=== PATIENT | male | born 1985 | race Caucasian/White ===

== ENCOUNTER 2016-11-27 12:05 | Emergency (ER) | payer MEDICAID ==
[2016-11-27 12:17] VITALS: BP 163/99
[2016-11-27] MEDS ORDERED: HYDROcod/ACETAM 5/325 MG TABLET PO STA (12:31)
[2016-11-27] MEDS ORDERED: DEXAMETHASONE 10 MG/ML VIAL PO STA (12:31)
[2016-11-27] MEDS ORDERED: NAPROXEN 250 MG TABLET PO STA (12:31)
[2016-11-27] MEDS ORDERED: NAPROXEN 250 MG TABLET PO ONE (12:35)
[2016-11-27] MEDS ORDERED: DEXAMETHASONE 10 MG/ML VIAL ONE (12:35)
[2016-11-27] MEDS ORDERED: HYDROcod/ACETAM 5/325 MG TABLET ONE (12:35)
--- NOTE | 2016-11-27 12:35 | ED Physician Documentation ---
PD HPI LOWER EXT INJURY - Stated complaint Stated Complaint: FOOT PX/SWELLING - Chief complaint Chief Complaint: Ext Problem - History obtained from History obtained from: Patient - History of Present Illness PD HPI LOW EXT INJURY LOCATION: Left, Toe (base of great toe.) Type of injury: Other (has had new boots for 3 weeks with some rub spot on end of toe but was not feeling pressure at the MTP. Has had more "summer food" lately with hot dogs/ hamburgers and more beer. No history of similar.). No: Fall, Twist Timing - onset: How many days ago (2) Timing - duration: Days (2 day of increasing pain. Had gotten new boots 3 weeks ago and though he might have wear spot from the boot breaking in, but the other foot feels okay and the foot is not hurting where the boot feels tight, but lower to it.) Timing - details: Gradual onset, Still present Improved by: No: Rest Worsened by: Moving, Palpating Associated symptoms: Swelling. No: Weakness, Numbness, Discolored Similar symptoms before: Has not had sx before (no history of gout nor arthritis ) Recently seen: Not recently seen Review of Systems Constitutional: denies: Fever, Chills Skin: denies: Abrasion (s), Laceration (s) Musculoskeletal: denies: Neck pain, Back pain Neurologic: denies: Focal weakness, Numbness PD PAST MEDICAL HISTORY - Past Medical History Past Medical History: Yes Cardiovascular: None Respiratory: None Neuro: None Endocrine/Autoimmune: None GI: GERD : None - Past Surgical History Past Surgical History: No - Present Medications Home Medications: Ambulatory Orders Medication Instructions Recorded Confirmed Colchicine 0.6 mg PO TID #9 tablet 11/27/16 Hydrocodone/Acetaminophen [[place] 1 each PO Q6H PRN #20 tablet 11/27/16 5-325 Tablet] Naproxen [Naprosyn] 500 mg PO BID PRN #20 tablet 11/27/16 - Allergies Allergies/Adverse Reactions: Allergies Allergy/AdvReac Type Severity Reaction Status Date / Time No Known Drug Allergies Allergy Verified 11/27/16 12:17 - Social History Does the pt smoke?: Yes Smoking Status: Current every day smoker Does the pt drink ETOH?: Yes Does the pt have substance abuse?: Yes - Immunizations Immunizations are current?: Yes - POLST Patient has POLST: No PD ED PE NORMAL - Vitals Vital signs reviewed: Yes - General General: Alert and oriented X 3, No acute distress, Well developed/nourished - Derm Derm: Normal color, Warm and dry - Extremities Extremities: Other (left great toe MTP dorsal and medial with marked tenderness , mild swelling, mild redness, without effusion. Some callous on medial side of toes itself but does not hurt there. No abrasions/skin sores. ) - Neuro Neuro: Alert and oriented X 3, No motor deficit, No sensory deficit, Normal speech Results - Vitals Vitals: Vital Signs - 24 hr 11/27/16 12:15 Temperature 36.3 C L Heart Rate 73 Respiratory 14 Rate Blood Pressure 163/99 H O2 Saturation 98 Oxygen O2 Source Room air PD MEDICAL DECISION MAKING - ED course Complexity details: considered differential (could be some reactive arthritis from new boot, but also has had more beer and hotdogs lately and seems gout- like. ), d/w patient Departure - Departure Disposition: 01 Home, Self Care Clinical Impression: Great toe pain Qualifiers: Laterality: left Qualified Code(s): M79.675 - Pain in left toe(s) Condition: Stable Record reviewed to determine appropriate education?: Yes Instructions: ED Arthritis Gout Follow-Up: Naomi Rich ARNP [Primary Care Provider] - Prescriptions: Colchicine 0.6 mg PO TID #9 tablet Naproxen [Naprosyn] 500 mg PO BID PRN #20 tablet PRN Reason: Pain Hydrocodone/Acetaminophen [[place] 5-325 Tablet] 1 each PO Q6H PRN #20 tablet PRN Reason: Pain Comments: This sounds likely gout or could be reactive arthritis (irritated from boots/etc ). Treatment for a single episode would be similar with addition of a gout medication for that possibility. Naproxen twice daily for a week. Colchicine three times daily for 2-3 days until improved. Add Tylenol or hydrocodone as needed for pains. Recheck if not improved over then next 2-3 days. Knowing the particular diagnosis would be more important if not improving or if you get recurrent episodes. Discharge Date/Time: 11/27/16 12:42
[2016-11-27] MEDS ORDERED: CHERRY SYRUP 10 ML UDC PO ONE (12:36)
== END 2016-11-27 12:42 | disposition home or self-care (01) ==
LOC: ED 12:05
DX: M79.675 Pain in left toe(s) (principal); F17.200 Nicotine dependence, unspecified, uncomplicated
CPT/HCPCS: 99283; A9270

== ENCOUNTER 2017-01-02 14:36 | Outpatient (CLI) | payer MEDICAID ==
[2017-01-02 18:48] LABS: BASOPHILS # (AUTO) 0.1 10^3/uL (0.0-0.1); BASOPHILS % (AUTO) 0.5 %; EOSINOPHILS # (AUTO) 0.1 10^3/uL (0.0-0.7); EOSINOPHILS % (AUTO) 1.1 %; HCT - HEMATOCRIT 42.9 % (42.0-52.0); HGB - HEMOGLOBIN 14.9 g/dL (14.0-18.0); LYMPHOCYTES # (AUTO) 3.2 10^3/uL (1.5-3.5); LYMPHOCYTES % (AUTO) 30.9 %; MEAN CORPUSCULAR HEMOGLOBIN 33.8 pg (27.0-31.0); MEAN CORPUSCULAR HGB CONC 34.7 g/dL (32.0-36.0); MEAN CORPUSCULAR VOLUME 97.3 fL (80.0-94.0); MEAN PLATELET VOLUME 7.7 fL (7.4-11.4); MONOCYTES % (AUTO) 9.5 %; NEUTROPHILS # (AUTO) 6.1 10^3/uL (1.5-6.6); NUCLEATED RED BLOOD CELLS AUTO 0.1 /100WBC; RED BLOOD COUNT 4.41 10^6/uL (4.70-6.10); RED CELL DISTRIBUTION WIDTH 14.1 % (12.0-15.0); UNCORRECTED WHITE BLOOD COUNT 10.5 x10^3/uL; WHITE BLOOD COUNT 10.5 x10^3/uL (4.8-10.8)
[2017-01-02 18:57] LABS: ALBUMIN/GLOBULIN RATIO 1.4 (1.0-2.2); BILIRUBIN,TOTAL 0.4 mg/dL (0.2-1.0); CALCIUM 9.5 mg/dL (8.5-10.3); POTASSIUM 4.1 mmol/L (3.5-5.0); TOTAL PROTEIN 6.9 g/dL (6.7-8.2); URIC ACID 8.1 mg/dL (2.6-7.2)
== END 2017-01-02 14:37 | disposition home or self-care (01) ==
LOC: LAB.S 14:36
PROVIDERS: ATTEND Nurse Practitioner Family
DX: M10.9 Gout, unspecified (principal)
CPT/HCPCS: 36415; 80053; 84550; 85025

== ENCOUNTER 2017-03-10 13:39 | Emergency (ER) | payer MEDICAID ==
--- NOTE | 2017-03-10 13:55 | ED Physician Documentation ---
PD HPI CHEST PAIN - Stated complaint Stated Complaint: CHEST PX - Chief complaint Chief Complaint: General - History obtained from History obtained from: Patient - History of Present Illness Timing - onset: Today Timing - onset during: Light activity Timing - duration: Hours Timing - details: Abrupt onset, Still present Quality: Pressure, Aching, Pain Location: Substernal, Other (epigastric/ right upper abd) Radiation: No: Back, Left upper extremity, Right upper extremity Improved by: No: Rest Worsened by: Inspiration, Movement, Palpation. No: Position Associated symptoms: Nausea, General Weakness. No: Shortness of air, Vomiting, Feeling faint / dizzy, Palpitations, Cough Similar symptoms before: Has not had sx before Recently seen: Not recently seen Review of Systems Constitutional: reports: Myalgias (for 2 days), Fatigue. denies: Fever, Chills Nose: reports: Congestion. denies: Rhinorrhea / runny nose Throat: denies: Sore throat Cardiac: denies: Pedal edema, Calf pain Respiratory: reports: Cough (mild in mornings) GI: reports: Nausea (just [employer]). denies: Vomiting, Diarrhea : denies: Dysuria, Frequency Musculoskeletal: denies: Extremity swelling Neurologic: reports: Generalized weakness (onset today). denies: Focal weakness , Numbness, Near syncope, Altered mental status, Headache Endocrine: denies: Weight loss, Easy bruising / bleeding Immunocompromised: denies: Immunocompromised PD PAST MEDICAL HISTORY - Past Medical History Cardiovascular: None Respiratory: Asthma Neuro: None Endocrine/Autoimmune: None GI: GERD : None - Past Surgical History Past Surgical History: No - Present Medications Home Medications: Ambulatory Orders Medication Instructions Recorded Confirmed No Known Home Medications [No 03/10/17 03/10/17 Known Home Medications] - Allergies Allergies/Adverse Reactions: Allergies Allergy/AdvReac Type Severity Reaction Status Date / Time No Known Drug Allergies Allergy Verified 11/27/16 12:17 - Social History Does the pt smoke?: Yes Smoking Status: Current every day smoker Does the pt drink ETOH?: Yes ETOH Use: Beer Does the pt have substance abuse?: Yes Substance Use and Type: Marijuana - Immunizations Immunizations are current?: Yes - POLST Patient has POLST: No PD ED PE NORMAL - Vitals Vital signs reviewed: Yes - General General: Alert and oriented X 3, Well developed/nourished - HEENT HEENT: Atraumatic, Dentition benign - Neck Neck: Supple, no meningeal sign, No adenopathy - Cardiac Cardiac: RRR, No murmur - Male Male : Deferred - Rectal Rectal: Deferred - Back Back: No CVA TTP - Derm Derm: Normal color, Warm and dry - Extremities Extremities: No tenderness to palpate, Normal ROM s pain Results - Vitals Vitals: Oxygen O2 Source Room air - Labs Labs: Laboratory Tests 03/10/17 03/10/17 03/10/17 14:15 14:15 14:15 WBC 7.6 RBC 4.58 L Hgb 15.0 Hct 43.3 MCV 94.7 H MCH 32.7 H MCHC 34.5 RDW 14.0 Plt Count 294 MPV 6.2 L Neut # 3.7 Lymph # 3.2 [place] # 0.6 Eos # 0.1 Baso # 0.1 Absolute Nucleated RBC 0.01 Nucleated RBC % 0.1 Sodium 136 Potassium 4.0 Chloride 101 Carbon Dioxide 21 Anion Gap 14.0 H BUN 8 Creatinine 0.8 Estimated GFR (MDRD) 114 Glucose 115 H Calcium 9.3 Total Bilirubin 0.8 AST 48 H ALT 43 Alkaline Phosphatase 84 Troponin I < 0.04 Total Protein 7.3 Albumin 4.3 Globulin 3.0 Albumin/Globulin Ratio 1.4 Lipase 30 Departure - Departure Disposition: 01 Home, Self Care Clinical Impression: Acute epigastric pain Condition: Stable Record reviewed to determine appropriate education?: Yes Instructions: ED Abdominal Pain Unkn Cause Follow-Up: Naomi Rich ARNP [Primary Care Provider] - Comments: There is no sign of heart process going on and your labs and ultrasound are normal so no gallbladder or pancreas problems. Consider likely irritated stomach. I would suggest some acid reducing medicines such as Pepcid or Zantac once or twice daily for the next week. Antacid such as Maalox or Mylanta. Recheck if not better over the next day or 2 and recheck if symptoms worsening problems. Discharge Date/Time: 03/10/17 17:58
[2017-03-10] MEDS ORDERED: ONDANSETRON 4 MG/2 ML VIAL IVP STA (14:12)
[2017-03-10] MEDS ORDERED: LIDOCAINE VISCOUS 2% 15 ML UDC MM STA (14:12)
[2017-03-10] MEDS ORDERED: MAG HYDROX/AL HYDROX/SIMETH 30 ML UDC PO STA (14:12)
[2017-03-10 14:20] LABS: BASOPHILS # (AUTO) 0.1 10^3/uL (0.0-0.1); BASOPHILS % (AUTO) 0.8 %; EOSINOPHILS # (AUTO) 0.1 10^3/uL (0.0-0.7); EOSINOPHILS % (AUTO) 1.1 %; HCT - HEMATOCRIT 43.3 % (42.0-52.0); LYMPHOCYTES # (AUTO) 3.2 10^3/uL (1.5-3.5); LYMPHOCYTES % (AUTO) 42.4 %; MEAN CORPUSCULAR HEMOGLOBIN 32.7 pg (27.0-31.0); MEAN CORPUSCULAR HGB CONC 34.5 g/dL (32.0-36.0); MEAN CORPUSCULAR VOLUME 94.7 fL (80.0-94.0); MEAN PLATELET VOLUME 6.2 fL (7.4-11.4); MONOCYTES # (AUTO) 0.6 10^3/uL (0.0-1.0); MONOCYTES % (AUTO) 7.5 %; NEUTROPHILS # (AUTO) 3.7 10^3/uL (1.5-6.6); NEUTROPHILS % (AUTO) 48.2 %; NUCLEATED RED BLOOD CELLS AUTO 0.1 /100WBC; RED BLOOD COUNT 4.58 10^6/uL (4.70-6.10); UNCORRECTED WHITE BLOOD COUNT 7.6 x10^3/uL; WHITE BLOOD COUNT 7.6 x10^3/uL (4.8-10.8)
[2017-03-10] MEDS ORDERED: LIDOCAINE VISCOUS 2% 15 ML UDC MM ONE (14:22)
[2017-03-10] MEDS ORDERED: MAG HYDROX/AL HYDROX/SIMETH 30 ML UDC ONE (14:23)
[2017-03-10] MEDS ORDERED: ONDANSETRON 4 MG/2 ML VIAL ONE (14:27)
[2017-03-10] MEDS ORDERED: SODIUM CHLORIDE FLUSH 0.9% 10 ML SYRINGE IVP ONE (14:28)
[2017-03-10 14:33] LABS: ALBUMIN/GLOBULIN RATIO 1.4 (1.0-2.2); BILIRUBIN,TOTAL 0.8 mg/dL (0.2-1.0); CALCIUM 9.3 mg/dL (8.5-10.3); CREATININE 0.8 mg/dL (0.6-1.2); TOTAL PROTEIN 7.3 g/dL (6.7-8.2)
[2017-03-10] MEDS ORDERED: FAMOTIDINE 20 MG TABLET PO STA (14:38)
[2017-03-10] MEDS ORDERED: FAMOTIDINE 20 MG TABLET ONE (14:45)
--- NOTE | 2017-03-10 16:55 | Ultrasound Preliminary Report ---
Exam: US Abdomen Limited IMPRESSION: 1. No gallstones or findings of acute cholecystitis or biliary dilatation. 2. Hepatomegaly with steatosis of the liver [facility] SITE ID: [id number]
--- NOTE | 2017-03-10 16:58 | Ultrasound Report ---
EXAM: ABDOMEN ULTRASOUND LIMITED, RUQ EXAM DATE: 03/10/2017 04:32 PM. CLINICAL HISTORY: Upper abd/RUQ pain onset this morning. COMPARISON: Abdomen CT 08/15/2016. TECHNIQUE: Real-time scanning was performed with static images obtained. FINDINGS: Liver: Liver parenchyma is diffusely echogenic and coarse. The liver is enlarged. 24.4 cm. Main surekha l vein flow: Hepatopetal. Gallbladder: Normal. No stones, wall thickening, or sonographic Aguila's sign. Biliary System: CBD measures 3.5 mm. No intrahepatic or extrahepatic ductal dilatation. Other: Right kidney measures 12.5 cm in length without hydronephrosis. IMPRESSION: 1. No gallstones or findings of acute cholecystitis or biliary dilatation. 2. Hepatomegaly with steatosis of the liver [facility] Referring Provider Line: [phone] SITE ID: [id number]
[2017-03-10] MEDS ORDERED: ACETAMINOPHEN 325 MG TABLET PO STA (17:40)
[2017-03-10] MEDS ORDERED: ACETAMINOPHEN 325 MG TABLET PO ONE (17:55)
[2017-03-10 17:56] VITALS: BP 157/88
== END 2017-03-10 17:58 | disposition home or self-care (01) ==
LOC: ED 13:39
DX: R10.13 Epigastric pain (principal); R94.31 Abnormal electrocardiogram [ECG] [EKG]; F17.200 Nicotine dependence, unspecified, uncomplicated
CPT/HCPCS: 36415; 76705; 80053; 83690; 84484; 85025; 93005; 96374; 99284; A9270

== ENCOUNTER 2017-08-07 10:25 | Outpatient (CLI) | payer MEDICAID ==
[2017-08-07 17:42] LABS: BASOPHILS # (AUTO) 0.1 10^3/uL (0.0-0.1); BASOPHILS % (AUTO) 0.8 %; EOSINOPHILS # (AUTO) 0.1 10^3/uL (0.0-0.7); EOSINOPHILS % (AUTO) 1.3 %; HGB - HEMOGLOBIN 15.1 g/dL (14.0-18.0); LYMPHOCYTES # (AUTO) 2.1 10^3/uL (1.5-3.5); LYMPHOCYTES % (AUTO) 28.1 %; MEAN CORPUSCULAR HEMOGLOBIN 32.7 pg (27.0-31.0); MEAN CORPUSCULAR HGB CONC 33.6 g/dL (32.0-36.0); MEAN CORPUSCULAR VOLUME 97.2 fL (80.0-94.0); MEAN PLATELET VOLUME 7.1 fL (7.4-11.4); MONOCYTES # (AUTO) 0.5 10^3/uL (0.0-1.0); MONOCYTES % (AUTO) 6.7 %; NEUTROPHILS # (AUTO) 4.7 10^3/uL (1.5-6.6); NEUTROPHILS % (AUTO) 63.1 %; PLT - PLATELET COUNT 346 10^3/uL (130-450); RED BLOOD COUNT 4.61 10^6/uL (4.70-6.10); RED CELL DISTRIBUTION WIDTH 14.3 % (12.0-15.0); WHITE BLOOD COUNT 7.4 x10^3/uL (4.8-10.8)
[2017-08-07 17:54] LABS: ALBUMIN 4.2 g/dL (3.2-5.5); ALBUMIN/GLOBULIN RATIO 1.3 (1.0-2.2); ALKALINE PHOSPHATASE 77 IU/L (42-121); ALT ALANINE AMINOTRANSFERASE 38 IU/L (10-60); AST ASPARTATE AMINOTRANSFERASE 40 IU/L (10-42); BUN - BLOOD UREA NITROGEN 13 mg/dL (6-20); CALCIUM 8.9 mg/dL (8.5-10.3); CARBON DIOXIDE - CO2 21 mmol/L (21-32); CHLORIDE 105 mmol/L (101-111); CHOL/HDL RATIO 5.8 (<5.0); CHOLESTEROL 236 mg/dL; CREATININE 0.9 mg/dL (0.6-1.2); GFR - MDRD 98 (>89); GLUCOSE 99 mg/dL (70-100); HDL CHOLESTEROL 41 mg/dL; SODIUM 134 mmol/L (135-145); TOTAL PROTEIN 7.5 g/dL (6.7-8.2); URIC ACID 9.3 mg/dL (2.6-7.2)
[2017-08-07 18:20] LABS: LDL CHOLESTEROL,DIRECT 109 mg/dL; LDLD/HDL RATIO 2.7 (<3.6)
== END 2017-08-07 10:26 | disposition home or self-care (01) ==
LOC: LAB.F 10:25
PROVIDERS: ATTEND Nurse Practitioner Family
DX: K76.0 Fatty (change of) liver, not elsewhere classified (principal); R03.0 Elevated blood-pressure reading, without diagnosis of hypertension; M10.9 Gout, unspecified; K51.90 Ulcerative colitis, unspecified, without complications; K21.9 Gastro-esophageal reflux disease without esophagitis
CPT/HCPCS: 36415; 80053; 80061; 83721; 84550; 85025

== ENCOUNTER 2018-09-06 10:15 | Outpatient (CLI) | payer MEDICAID ==
[2018-09-06 16:53] LABS: BASOPHILS % (AUTO) 0.7 %; EOSINOPHILS # (AUTO) 0.1 10^3/uL (0.0-0.7); EOSINOPHILS % (AUTO) 1.8 %; HGB - HEMOGLOBIN 16.1 g/dL (14.0-18.0); LYMPHOCYTES # (AUTO) 2.5 10^3/uL (1.5-3.5); LYMPHOCYTES % (AUTO) 40.1 %; MEAN CORPUSCULAR HEMOGLOBIN 33.5 pg (27.0-31.0); MEAN CORPUSCULAR HGB CONC 33.8 g/dL (32.0-36.0); MEAN CORPUSCULAR VOLUME 99.3 fL (80.0-94.0); MONOCYTES # (AUTO) 0.6 10^3/uL (0.0-1.0); MONOCYTES % (AUTO) 10.1 %; NEUTROPHILS # (AUTO) 2.9 10^3/uL (1.5-6.6); NEUTROPHILS % (AUTO) 47.3 %; PLT - PLATELET COUNT 378 10^3/uL (130-450); RED BLOOD COUNT 4.81 10^6/uL (4.70-6.10); RED CELL DISTRIBUTION WIDTH 13.9 % (12.0-15.0); WHITE BLOOD COUNT 6.2 x10^3/uL (4.8-10.8)
[2018-09-06 17:08] LABS: ALBUMIN 4.1 g/dL (3.2-5.5); ALBUMIN/GLOBULIN RATIO 1.3 (1.0-2.2); ALKALINE PHOSPHATASE 72 IU/L (42-121); ALT ALANINE AMINOTRANSFERASE 38 IU/L (10-60); AST ASPARTATE AMINOTRANSFERASE 38 IU/L (10-42); BILIRUBIN,TOTAL 0.9 mg/dL (0.2-1.0); BUN - BLOOD UREA NITROGEN 9 mg/dL (6-20); CALCIUM 9.1 mg/dL (8.5-10.3); CARBON DIOXIDE - CO2 25 mmol/L (21-32); CHLORIDE 101 mmol/L (101-111); CHOL/HDL RATIO 5.4 (<5.0); CHOLESTEROL 261 mg/dL; CREATININE 0.8 mg/dL (0.6-1.2); GFR - MDRD 112 (>89); GLUCOSE 115 mg/dL (70-100); HDL CHOLESTEROL 48 mg/dL; SODIUM 138 mmol/L (135-145); TOTAL PROTEIN 7.2 g/dL (6.7-8.2); URIC ACID 10.8 mg/dL (2.6-7.2)
[2018-09-06 17:32] LABS: LDL CHOLESTEROL,DIRECT 121 mg/dL; LDLD/HDL RATIO 2.5 (<3.6)
[2018-09-06 17:34] LABS: HB2 TOTAL 17.5 g/dL; HEMOGLOBIN A1C 0.64 g/dL; HEMOGLOBIN A1C % 5.5 % (4.6-6.2)
== END 2018-09-06 10:16 | disposition home or self-care (01) ==
LOC: LAB.F 10:15
PROVIDERS: ATTEND Registered Nurse
DX: Z00.00 Encounter for general adult medical examination without abnormal findings (principal); M10.9 Gout, unspecified
CPT/HCPCS: 36415; 80053; 80061; 83036; 83721; 84443; 84550; 85025

== ENCOUNTER 2018-11-01 08:45 | Outpatient (CLI) | payer MEDICAID ==
[2018-11-01 10:35] LABS: BASOPHILS # (AUTO) 0.1 10^3/uL (0.0-0.1); BASOPHILS % (AUTO) 0.9 %; EOSINOPHILS # (AUTO) 0.2 10^3/uL (0.0-0.7); HGB - HEMOGLOBIN 14.9 g/dL (14.0-18.0); LYMPHOCYTES # (AUTO) 2.4 10^3/uL (1.5-3.5); MEAN CORPUSCULAR HEMOGLOBIN 33.3 pg (27.0-31.0); MEAN CORPUSCULAR HGB CONC 33.9 g/dL (32.0-36.0); MEAN CORPUSCULAR VOLUME 98.3 fL (80.0-94.0); MEAN PLATELET VOLUME 7.1 fL (7.4-11.4); MONOCYTES # (AUTO) 0.7 10^3/uL (0.0-1.0); MONOCYTES % (AUTO) 7.6 %; NEUTROPHILS # (AUTO) 5.3 10^3/uL (1.5-6.6); NEUTROPHILS % (AUTO) 61.5 %; PLT - PLATELET COUNT 334 10^3/uL (130-450); RED BLOOD COUNT 4.47 10^6/uL (4.70-6.10); RED CELL DISTRIBUTION WIDTH 13.8 % (12.0-15.0); WHITE BLOOD COUNT 8.6 x10^3/uL (4.8-10.8)
[2018-11-01 10:51] LABS: ALBUMIN/GLOBULIN RATIO 1.2 (1.0-2.2); BILIRUBIN,TOTAL 0.6 mg/dL (0.2-1.0); CALCIUM 8.8 mg/dL (8.5-10.3); CREATININE 0.9 mg/dL (0.6-1.2); TOTAL PROTEIN 7.3 g/dL (6.7-8.2)
[2018-11-01 11:04] LABS: HB2 TOTAL 16.3 g/dL; HEMOGLOBIN A1C 0.62 g/dL; HEMOGLOBIN A1C % 5.6 % (4.6-6.2)
== END 2018-11-01 08:46 | disposition home or self-care (01) ==
LOC: LAB.F 08:45
PROVIDERS: ATTEND Registered Nurse
DX: I10 Essential (primary) hypertension (principal); Z72.0 Tobacco use; E78.1 Pure hyperglyceridemia; E66.9 Obesity, unspecified; J45.909 Unspecified asthma, uncomplicated
CPT/HCPCS: 36415; 80053; 83036; 85025

== ENCOUNTER 2022-11-24 18:05 | Emergency (ER) | payer MEDICAID ==
[2022-11-24 18:19] VITALS: BP 211/118
[2022-11-24] MEDS ORDERED: oxyCODONE/ACET 5/325 Prepack 4 PO STA (18:40)
[2022-11-24] MEDS ORDERED: LIDOCAINE PATCH 5% TOP STA (18:40)
--- NOTE | 2022-11-24 18:41 | ED Physician Documentation ---
PD HPI MAJOR TRAUMA - Stated complaint Stated Complaint: FALL/LT RIB PX - Chief complaint Chief Complaint: Trauma Ch/Bk - History obtained from History obtained from: Patient (2 nights ago he was wrestling with a friend, friendly, and they came down together and he felt a popping and cracking in his left chest. Pain is worse today than it was 2 days ago. No other injuries.) PD PAST MEDICAL HISTORY - Past Medical History Cardiovascular: None Respiratory: Asthma Endocrine/Autoimmune: None GI: GERD : None - Past Surgical History Past Surgical History: No - Present Medications Home Medications: Ambulatory Orders Medication Instructions Recorded Confirmed Lidocaine Patch 5% [Lidoderm Patch] 1 patch TOP DAILY PRN #10 patch 11/24/22 Oxycodone HCl/Acetaminophen 1 - 2 each PO Q6H PRN #7 tablet 11/24/22 [Percocet 5-325 mg Tablet] - Allergies Allergies/Adverse Reactions: Allergies Allergy/AdvReac Type Severity Reaction Status Date / Time acetaminophen [From [place]] Allergy Itching Verified 11/24/22 18:43 hydrocodone [From [place]] Allergy Itching Verified 11/24/22 18:43 - Social History Does the pt smoke?: Yes Smoking Status: Current every day smoker Does the pt drink ETOH?: Yes Does the pt have substance abuse?: Yes - Immunizations Immunizations are current?: Yes - POLST Patient has POLST: No PD ED PE NORMAL - Vitals Vital signs reviewed: Yes - General General: Alert and oriented X 3, No acute distress - Neck Neck: Supple, no meningeal sign, No bony TTP - Cardiac Cardiac: RRR, No murmur - Respiratory Respiratory: No respiratory distress, Clear bilaterally, Other (Tender to the left anterior chest wall in the anterior axillary line without deformity.) - Abdomen Abdomen: Non tender - Neuro Neuro: Alert and oriented X 3, Normal speech Results - Vitals Vitals: Vital Signs - 24 hr 11/24/22 11/24/22 18:13 18:16 Temperature 36.9 C Heart Rate 62 78 Respiratory 20 16 Rate Blood Pressure 211/118 H 211/118 H O2 Saturation 94 95 Oxygen O2 Source Room air - Rads (name of study) Left ribs and chest x-ray, I did not see a rib fracture, the radiologist said there was a left 10th rib fracture. Relevant Findings:: Final report received, EMP independent interpretation of charlene t PD Medical Decision Making - ED course ED course: 37-year-old gentleman with chest wall contusion versus rib fracture. Chest x-ra y showing no blood or pneumothorax. I did not see a rib fracture, but discussed with the patient that he may well have a rib fracture. He was discharged and the Radiologist felt he did have a rib fracture. I tried calling the patient, x2, no answer and his voicemail was not set up. Departure - Departure Disposition: 01 Home, Self Care Clinical Impression: Fracture of rib Qualifiers: Encounter type: initial encounter Rib fracture type: single rib Fracture type: closed Laterality: left Qualified Code(s): S22.32XA - Fracture of one rib, left side, initial encounter for closed fracture Condition: Good Record reviewed to determine appropriate education?: Yes Instructions: ED Contusion Vs Minor Fx Rib Prescriptions: Lidocaine Patch 5% [Lidoderm Patch] 1 patch TOP DAILY PRN #10 patch PRN Reason: pain Oxycodone HCl/Acetaminophen [Percocet 5-325 mg Tablet] 1 - 2 each PO Q6H PRN #7 tablet PRN Reason: pain Comments: As discussed, although I do not see a clear fracture on your x-ray, hairline fractures of ribs can be difficult to visualize. I sent a prescription for a few more Percocet up to [facility] in [place]. Also with the lidocaine patches. Return for new or worsening symptoms. Follow-up with your doctor in a week if not improving. I am prescribing a short course of narcotic pain medication for you. These are potentially dangerous and addictive medications that should be used carefully. These medications may constipate you. Take an snfe-izl-jblalzf stool softener (docusate) twice daily with plenty of water while taking these medications. If you go 24 hours without a bowel movement, take [id number] miralax, per package instructions. Do not drink or drive while taking these medications. If you received narcotic or sedating medications while in the emergency department, do not drive for 24 hours. Store this medication in a safe, secure place and out of reach of children. It is a violation of federal law to give or sell this medication to another person or to use in a manner other than prescribed. The ED will not refill narcotic prescriptions, including prescriptions lost or stolen. To dispose of unwanted medications: 1. [employer] provides a drop box for medication in pill form only (no liquids) 8:00 am to 4:30 p.m. Monday-Monday in the lobby of the [facility], [address] [place] [address]. Empty pills into ziplock bag before disposal. Call [phone] for information. 2.[employer] is a free service available to all [facility] residents. Go to [email or web address] Note that many narcotic pain relievers also contain Tylenol/acetaminophen. Please ensure that your total dose of acetaminophen from all sources does not exceed 3 g (3000 mg) per day.
--- NOTE | 2022-11-24 18:46 | XRAY Report ---
PROCEDURE: Ribs w/PA Chest LT INDICATIONS: trauma TECHNIQUE: 2 views of the left ribs were acquired, along with a single view chest. COMPARISON: None. FINDINGS: Surgical changes and devices: None. Bones and chest wall: Mildly displaced left anterolateral 10th rib fracture. No suspicious bony lesi ons. Overlying soft tissues appear unremarkable. Lungs and pleura: No pleural effusions or pneumothorax. Lungs appear clear. Mediastinum: Mediastinal contours appear normal. Heart size is normal. IMPRESSION: 10th rib fracture. Reviewed by: Brian Sampson MD on 11/24/2022 6:45 PM PDT Approved by: Brian Sampson MD on 11/24/2022 6:45 PM PDT Station ID: [id number]
== END 2022-11-24 19:20 | disposition home or self-care (01) ==
LOC: ED 18:05
DX: S22.32XA Fracture of one rib, left side, initial encounter for closed fracture (principal); W50.0XXA Accidental hit or strike by another person, initial encounter; Y93.83 Activity, rough housing and horseplay; F17.200 Nicotine dependence, unspecified, uncomplicated
CPT/HCPCS: 71101; 99283; 99284; A9270

== ENCOUNTER 2023-04-28 08:00 | Outpatient (CLI) | payer MEDICAID ==
--- NOTE | 2023-04-28 15:35 | XRAY Report ---
PROCEDURE: Chest 2 View X-Ray INDICATIONS: BRONCHOSPASM TECHNIQUE: 2 views of the chest were acquired. COMPARISON: 11/24/2022. FINDINGS: Surgical changes and devices: None. Lungs and pleura: No pleural effusions or pneumothorax. Lungs are clear. Mediastinum: Mediastinal contours appear normal. Heart size is normal. Bones and chest wall: No suspicious bony lesions. Overlying soft tissues appear unremarkable. IMPRESSION: No acute cardiopulmonary process. Reviewed by: Jordi Rodriguez MD on 04/28/2023 3:34 PM PST Approved by: Jordi Rodriguez MD on 04/28/2023 3:34 PM PST Station ID: [id number]
== END 2023-04-28 23:59 | disposition home or self-care (01) ==
LOC: DI.S 08:00
PROVIDERS: ATTEND Emergency Medicine
DX: J98.01 Acute bronchospasm (principal)

== ENCOUNTER 2023-05-12 13:11 | Outpatient (CLI) | payer MEDICAID ==
--- NOTE | 2023-05-12 17:32 | XRAY Report ---
PROCEDURE: Chest 2 View X-Ray INDICATIONS: PRIMARY ATYPICAL INTERSTITIAL PNEUMONIA TECHNIQUE: 2 views of the chest were acquired. COMPARISON: None. FINDINGS: Surgical changes and devices: None. Lungs and pleura: No pleural effusions or pneumothorax. Lungs are clear. Mediastinum: Mediastinal contours appear normal. Heart size is normal. Bones and chest wall: No suspicious bony lesions. Overlying soft tissues appear unremarkable. IMPRESSION: Stable evaluation of the chest. No acute cardiopulmonary abnormalities. No focal airspace disease. Reviewed by: Onur Child MD on 05/12/2023 5:31 PM PST Approved by: Onur Child MD on 05/12/2023 5:31 PM [facility] Station ID: [id number]
== END 2023-05-12 23:59 | disposition home or self-care (01) ==
LOC: DI.S 13:11
PROVIDERS: ATTEND Registered Nurse
DX: J84.89 Other specified interstitial pulmonary diseases (principal)